=== PATIENT | male | born 1955 | race Caucasian/White ===

== ENCOUNTER 2018-02-18 02:34 | Observation (INO) | payer BC ==
[~2018-02-18] VITALS: Ht 180.3 cm; Wt 122.9 kg
[~2018-02-18 02:34] MED LIST: AZITHROMYCIN250 MG1 PO; PREDNISONE20 MG PO; PROAIR HFA8.5 GM IH
[2018-02-18 03:30] LABS: HEMATOCRIT 45.9 % (38.0-50.0); HEMOGLOBIN 15.7 G/DL (12.5-16.6); MCH 29.2 PG (29.0-34.0); MCHC 34.2 G/DL (30.0-36.0); MCV 85.5 FL (86-99); PLATELET COUNT 245 K/uL (156-360); RBC DIS.WIDTH-CV 13.3 % (11.8-14.6); RBC DIS.WIDTH-SD 41.5 % (39-53); RED BLOOD COUNT 5.37 M/uL (4.00-5.50); WHITE BLOOD COUNT 10.2 K/uL (4.1-10.2)
[2018-02-18 03:41] LABS: ALBUMIN 4.3 g/dL (3.2-4.8); CHLORIDE 101 mEq/L (99-109); POTASSIUM 3.4 mEq/L (3.7-5.4); SODIUM 139 mEq/L (136-147)
[2018-02-18 03:43] LABS: GLUCOSE 114 mg/dL (70-99)
[2018-02-18 03:44] LABS: TOTAL PROTEIN 7.1 g/dL (6.4-8.3)
[2018-02-18 03:45] LABS: TOTAL BILIRUBIN 0.7 mg/dL (0.0-1.0)
[2018-02-18 03:47] LABS: ALKALINE PHOSPHATASE 93 IU/L (3-129); CREATININE 1.1 mg/dL (0.6-1.3); GFR ESTIMATE (CALCULATED) > 59 mL/min/ (58.99-99999)
[2018-02-18 03:48] LABS: UREA NITROGEN (BUN) 20 mg/dL (9-23)
[2018-02-18 03:49] LABS: AST (GOT) 26 IU/L (2-34)
[2018-02-18 03:50] LABS: ALT (GPT) 29 IU/L (3-49); LIPASE 21 U/L (1.0-51.0)
[2018-02-18 03:51] LABS: TROP-I INTERPRETATION NEGATIVE; TROPONIN-I < 0.01 ng/mL (0.0-0.30)
[2018-02-18 03:51] LABS: APPEARANCE CLEAR ((CLEAR)); BILIRUBIN NEGATIVE; BLOOD NEGATIVE; COLOR YELLOW ((YELLOW)); GLUCOSE (STRIP) NEGATIVE; KETONES NEGATIVE; LEUKOCYTES NEGATIVE; NITRITE NEGATIVE; PROTEIN (STRIP) 100; SPECIFIC GRAVITY 1.025 (1.000-1.030); UROBILINOGEN 0.2 MG/DL (0.2-1.0)
[2018-02-18 03:53] LABS: BACTERIA 1+ /HPF; EPITHELIAL CELLS NONE SEEN /HPF; MUCUS 3+ /LPF; RED BLOOD CELLS 0-5 /HPF (0-5); UCUL ADDED? NO; WHITE BLOOD CELLS 0-5 /HPF (0-5)
[2018-02-18 09:21] LABS: TROP-I INTERPRETATION NEGATIVE; TROPONIN-I < 0.01 ng/mL (0.0-0.30)
[2018-02-18] MEDS ORDERED: CONTRAVE ER 8-1 EACH PO ×2 (09:21)
[2018-02-18] MEDS ORDERED: IBUPROFEN800 MG PO (09:21)
[2018-02-18] MEDS ORDERED: QUESTRAN PACKET4 GM PO (09:21)
[2018-02-18] MEDS ORDERED: HYDROCHLOROTHIA25 MG PO (09:22)
[2018-02-18] MEDS ORDERED: AMLODIPINE BESYL5 MG PO (09:22)
[2018-02-18] MEDS ORDERED: PROAIR HFA8.5 GM IH (09:22)
[2018-02-18] MEDS ORDERED: ERGOCALCIF50000 UNIT PO (09:22)
[2018-02-18 09:56] LABS: C DIFF TOXIN NEGATIVE (NEGATIVE)
[2018-02-18 10:12] VITALS: BP 145/82
[2018-02-18 19:45] VITALS: BP 149/89
[2018-02-19 03:15] VITALS: BP 126/70
[2018-02-19 05:25] LABS: ALBUMIN 3.5 G/DL (3.2-4.8); C-REACTIVE PROTEIN 10.3 MG/L (0-10); CHLORIDE 108 MEQ/L (99-109); GFR ESTIMATE (CALCULATED) > 59 mL/min/ (58.99-99999); GLUCOSE 90 mg/dL (70-99); PHOSPHORUS 2.6 mg/dL (2.5-4.9); POTASSIUM 3.8 MEQ/L (3.7-5.4); SODIUM 139 MEQ/L (136-147); UREA NITROGEN (BUN) 14 mg/dL (9-23)
[2018-02-19 05:31] LABS: CHLORIDE 107 MEQ/L (99-109); GFR ESTIMATE (CALCULATED) > 59 mL/min/ (58.99-99999); GLUCOSE 92 mg/dL (70-99); POTASSIUM 3.8 MEQ/L (3.7-5.4); SODIUM 139 MEQ/L (136-147); UREA NITROGEN (BUN) 14 mg/dL (9-23)
[2018-02-19 06:20] LABS: HEMATOCRIT 41.1 % (38.0-50.0); MCH 28.2 PG (29.0-34.0); MCHC 32.8 G/DL (30.0-36.0); PLATELET COUNT 203 K/uL (156-360); RBC DIS.WIDTH-CV 13.2 % (11.8-14.6); RBC DIS.WIDTH-SD 41.8 % (39-53); RED BLOOD COUNT 4.78 M/uL (4.00-5.50); WHITE BLOOD COUNT 6.7 K/uL (4.1-10.2)
[2018-02-19 06:23] LABS: HEMOGLOBIN 13.5 G/DL (12.5-16.6)
[2018-02-19 07:00] VITALS: BP 139/76
[2018-02-19 11:31] VITALS: BP 177/85
[2018-02-19] MEDS ORDERED: BENTYL20 MG PO (15:02)
[2018-02-19] MEDS ORDERED: METRONIDAZOLE500 MG PO (15:07)
[2018-02-19 20:00] VITALS: BP 162/78
== END 2018-02-19 22:24 | disposition home or self-care (01) ==
LOC: EME 02:34 → 4SOUTH 07:36 → EDOF 07:36 → ENRESERV 08:40 → 4SOUTH 10:07
PROVIDERS: Emergency Medicine; Internal Medicine; Internal Medicine Gastroenterology
PROC: 0DBP8ZX Excision of Rectum, Via Natural or Artificial Opening Endoscopic, Diagnostic (ICD-10-PCS; principal; 2018-02-18)
DX: R10.30 Lower abdominal pain, unspecified (principal); R19.7 Diarrhea, unspecified; Z86.19 Personal history of other infectious and parasitic diseases; I10 Essential (primary) hypertension; E78.5 Hyperlipidemia, unspecified; K57.30 Diverticulosis of large intestine without perforation or abscess without bleeding; D12.8 Benign neoplasm of rectum; Z86.010 Personal history of colon polyps; K64.8 Other hemorrhoids; E87.6 Hypokalemia; M48.061 Spinal stenosis, lumbar region without neurogenic claudication; R07.89 Other chest pain; Z87.442 Personal history of urinary calculi; E66.9 Obesity, unspecified; Z68.37 Body mass index [BMI] 37.0-37.9, adult; Z87.891 Personal history of nicotine dependence; Z82.49 Family history of ischemic heart disease and other diseases of the circulatory system; Z80.1 Family history of malignant neoplasm of trachea, bronchus and lung
CPT/HCPCS: 74177; 80048; 80053; 80069; 81003; 83605; 83630; 83690; 84484; 85027; 86140; 87177; 87493; 87506; 88305; 93005; 99281; 99285; G0378; J2250; J2765; J7030; S0028

== ENCOUNTER 2018-02-22 04:43 | Inpatient (IN) | payer BC ==
[~2018-02-22] VITALS: Ht 177.8 cm; Wt 118.2 kg
[~2018-02-22 04:43] MED LIST changes: +AMLODIPINE BESYL5 MG PO; +BENTYL20 MG PO; +CONTRAVE ER 8-1 EACH PO; +ERGOCALCIF50000 UNIT PO; +HYDROCHLOROTHIA25 MG PO; +IBUPROFEN800 MG PO; +METRONIDAZOLE500 MG PO; +QUESTRAN PACKET4 GM PO
[2018-02-22 05:30] LABS: BASOPHIL COUNT 0.1 K/uL (0-0.1); EOSINOPHIL (%) 2.4 % (0-5); EOSINOPHIL COUNT 0.2 K/uL (0-0.3); HEMATOCRIT 47.5 % (38.0-50.0); IMMATURE GRANULOCYTE (%) 0.6 % (0.0-0.7); LYMPHOCYTE (%) 12.8 % (15-42); LYMPHOCYTE COUNT 1.2 K/uL (1.0-2.8); MCH 28.6 PG (29.0-34.0); MCHC 33.9 G/DL (30.0-36.0); MCV 84.5 FL (86-99); MONOCYTE (%) 11.5 % (3-12); MONOCYTE COUNT 1.1 K/uL (0-0.8); NEUTROPHIL (%) 71.7 % (45-76); PLATELET COUNT 236 K/uL (156-360); RBC DIS.WIDTH-CV 13.2 % (11.8-14.6); RBC DIS.WIDTH-SD 41.1 % (39-53); RED BLOOD COUNT 5.62 M/uL (4.00-5.50); WHITE BLOOD COUNT 9.7 K/uL (4.1-10.2)
[2018-02-22 05:30] LABS: PTT 31.6 SEC (25-37)
[2018-02-22 05:32] LABS: CHLORIDE 105 mEq/L (99-109); POTASSIUM 3.3 mEq/L (3.7-5.4); SODIUM 141 mEq/L (136-147)
[2018-02-22 05:33] LABS: MAGNESIUM 2.5 mg/dL (1.3-2.7)
[2018-02-22 05:34] LABS: HEMOGLOBIN 16.1 G/DL (12.5-16.6)
[2018-02-22 05:35] LABS: GLUCOSE 122 mg/dL (70-99); TOTAL PROTEIN 7.2 g/dL (6.4-8.3)
[2018-02-22 05:38] LABS: ALKALINE PHOSPHATASE 85 IU/L (3-129); SERUM ETHYL ALCOHOL < 10 mg/dL
[2018-02-22 05:42] LABS: ALT (GPT) 43 IU/L (3-49)
[2018-02-22 05:51] LABS: TROP-I INTERPRETATION NEGATIVE; TROPONIN-I 0.01 ng/mL (0.0-0.30)
[2018-02-22 06:07] LABS: INTER. NORMALIZED RATIO 1.1
[2018-02-22 06:17] LABS: CREATININE 1.5 mg/dL (0.6-1.3); UREA NITROGEN (BUN) 22 mg/dL (9-23)
[2018-02-22 06:18] LABS: AST (GOT) 38 IU/L (2-34); GFR ESTIMATE (CALCULATED) 50 mL/min/ (58.99-99999); TOTAL BILIRUBIN 0.5 mg/dL (0.0-1.0)
[2018-02-22] MEDS ORDERED: CARAFATE1 GM PO (07:33)
[2018-02-22] MEDS ORDERED: BICARSIM FORTE125 MG PO (07:38)
[2018-02-22] MEDS ORDERED: ANTACID LIQUID355 ML PO (07:40)
[2018-02-22 09:29] VITALS: BP 145/70
[2018-02-22 10:54] LABS: TROP-I INTERPRETATION NEGATIVE; TROPONIN-I 0.04 ng/mL (0.0-0.30)
[2018-02-22 17:08] VITALS: BP 120/68
[2018-02-22 17:23] LABS: TROP-I INTERPRETATION NEGATIVE; TROPONIN-I 0.05 ng/mL (0.0-0.30)
[2018-02-22 17:50] LABS: CHLORIDE 104 MEQ/L (99-109); CREATININE 1.1 MG/DL (0.6-1.3); GFR ESTIMATE (CALCULATED) > 59 mL/min/ (58.99-99999); GLUCOSE 103 mg/dL (70-99); SODIUM 138 MEQ/L (136-147); UREA NITROGEN (BUN) 22 mg/dL (9-23)
[2018-02-22 19:42] VITALS: BP 136/82
[2018-02-22 23:07] VITALS: BP 122/61
[2018-02-23 03:30] VITALS: BP 110/71
[2018-02-23 05:38] LABS: MCHC 32.4 G/DL (30.0-36.0); MCV 86.6 FL (86-99); PLATELET COUNT 201 K/uL (156-360); RBC DIS.WIDTH-CV 13.4 % (11.8-14.6); RBC DIS.WIDTH-SD 42.3 % (39-53); RED BLOOD COUNT 4.85 M/uL (4.00-5.50); WHITE BLOOD COUNT 7.8 K/uL (4.1-10.2)
[2018-02-23 05:44] LABS: HEMOGLOBIN 13.6 G/DL (12.5-16.6)
[2018-02-23 05:55] LABS: CHLORIDE 106 MEQ/L (99-109); CREATININE 1.2 MG/DL (0.6-1.3); GFR ESTIMATE (CALCULATED) > 59 mL/min/ (58.99-99999); GLUCOSE 89 mg/dL (70-99); POTASSIUM 4.4 MEQ/L (3.7-5.4); SODIUM 140 MEQ/L (136-147); UREA NITROGEN (BUN) 22 mg/dL (9-23)
[2018-02-23 08:26] VITALS: BP 123/70
[2018-02-23] MEDS ORDERED: LOPERAMIDE2 MG PO (11:16)
[2018-02-23 12:00] VITALS: BP 149/74
[2018-02-23] MEDS ORDERED: DILTIAZEM 24HR120 MG PO (13:50)
== END 2018-02-23 15:03 | disposition home or self-care (01) | DRG 309 ==
LOC: EME → EDBD 04:43 → 4EAST 07:31 → EDOF 07:31 → ENRESERV 07:39 → 4EAST 09:19
PROVIDERS: Emergency Medicine; Internal Medicine
PROC: 5A2204Z Restoration of Cardiac Rhythm, Single (ICD-10-PCS; principal; 2018-02-22)
DX: I47.1 Supraventricular tachycardia (principal); I49.3 Ventricular premature depolarization; E87.6 Hypokalemia; N17.9 Acute kidney failure, unspecified; E86.0 Dehydration; E86.1 Hypovolemia; R19.7 Diarrhea, unspecified; I11.0 Hypertensive heart disease with heart failure; I50.9 Heart failure, unspecified; E78.5 Hyperlipidemia, unspecified; F41.9 Anxiety disorder, unspecified; F10.21 Alcohol dependence, in remission; E66.9 Obesity, unspecified; K57.30 Diverticulosis of large intestine without perforation or abscess without bleeding; Z87.891 Personal history of nicotine dependence; Z86.19 Personal history of other infectious and parasitic diseases; Z68.37 Body mass index [BMI] 37.0-37.9, adult; Z87.19 Personal history of other diseases of the digestive system
CPT/HCPCS: 71045; 80048; 80048 91; 80053; 83735; 84443; 84484; 85025; 85027; 85610; 85730; 93005; 99281; 99285; C9113; G0480; J0153; J1644; J2405; J3480; J7030; J7120